=== PATIENT | male | born 1965 | race African-American/Black ===

== ENCOUNTER 2018-07-14 08:14 | Day surgery (SDC) | payer OTHER ==
[~2018-07-14] VITALS: Ht 180.3 cm; Wt 105.2 kg
[2018-07-14] VITALS (9 sets, daily range): BP systolic 126–148; BP diastolic 52–86
[2018-07-14] MEDS ORDERED: AMLODIPINE BESY10 MG ORAL (09:02)
[2018-07-14] MEDS ORDERED: OMEPRAZOLE20 M2 ORAL (09:02)
[2018-07-14] MEDS ORDERED: NAPROXEN CR500 MG PO (09:02)
[2018-07-14] MEDS ORDERED: KENALOG 0.025%15 GM APPLIC (09:02)
[2018-07-14] MEDS ORDERED: SINGULAIR10 MG ORAL (09:02)
[2018-07-14] MEDS ORDERED: ATORVASTATIN CA20 MG ORAL (09:02)
[2018-07-14] MEDS ORDERED: ATARAX25 MG ORAL (09:02)
[2018-07-14] MEDS ORDERED: GAVISCON ES TA1 EACH PO (09:02)
[2018-07-14] MEDS ORDERED: LEVOCETIRIZINE D5 MG ORAL (09:02)
[2018-07-14] MEDS ORDERED: Esmolol 100mg/10ml Inj ONE (10:00)
[2018-07-14] MEDS ORDERED: Lidocaine 1% MPF 10mg/ml 5ml ONE (10:00)
[2018-07-14] MEDS ORDERED: LR 1000ml ONE (10:00)
[2018-07-14] MEDS ORDERED: Propofol 200mg/20ml IV ONE (10:00)
--- NOTE | 2018-07-14 10:06 | Short Stay Surgery H&P ---
History of Present Illness History of Present Illness Chief Complaint abdominal pains/GERDs HPI Pedro Moser is a 52 year old male who was admitted on for GERDS Patient History Allergies: Coded Allergies: ACETAMINOPHEN (Verified Allergy, Severe, 07/14/18) HIVES BACITRACIN (Verified Allergy, Severe, 07/14/18) SWELLING HYDROCODONE (Verified Allergy, Severe, 07/14/18) HIVES NEOMYCIN (Verified Allergy, Severe, 07/14/18) SWELLING POLYMYXIN B (Verified Allergy, Severe, 07/14/18) SWELLING Uncoded Allergies: HARMON SPROUTS (Allergy, Severe, 07/14/18) ITCHY THROAT PAST MEDICAL HISTORY: (1) Hypertension (2) Hyperlipidemia (3) Cervical disc disease Medication History Scheduled Amlodipine Besylate* (Amlodipine Besylate*), 10 MG ORAL DAILY, (Reported) Atorvastatin Calcium* (Atorvastatin Calcium*), 20 MG ORAL BEDTIME, (Reported) Hydroxyzine HCl (Hydroxyzine HCl), 25 MG ORAL NEEDED, (Reported) Levocetirizine Dihydrochloride (Levocetirizine Dihydrochloride), 5 MG ORAL DAILY , (Reported) Magnesium Carbonate/Al Hydrox (Gaviscon Es Tablet Chew), 1 EACH PO TID, ( Reported) Montelukast Sodium* (Singulair*), 10 MG ORAL DAILY, (Reported) Naproxen Sodium (Naproxen Cr), 500 MG PO NEEDED, (Reported) Omeprazole (Omeprazole), 20 MG ORAL DAILY, (Reported) Triamcinolone Acet (Triamcinolone Acetonide), 15 GM APPLIC NEEDED, (Reported) Review of Systems Cardiovascular: Reports: no symptoms Respiratory: Reports: no symptoms Skeletal: Reports: trauma Gastrointestinal: Reports: gastro esophageal reflux disease Genitourinary: Reports: no symptoms Neurologic: Reports: no symptoms Endocrine: Reports: no symptoms Hematologic: Reports: no symptoms Physical Exam Vital Signs Last Vital Signs Date Time Temp Pulse Resp B/P (MAP) Pulse Ox O2 Delivery O2 Flow Rate FiO2 07/14/18 09:12 Room Air 07/14/18 08:57 98.4 75 18 126/83 98 Skin: normal HENT: normal Heart: normal Lungs: normal Abdomen: abnormal Extremities: normal Genitourinary: normal Plan Plan of Care Upper GI endoscopy and biopsy Preop Interventions None. Summary of Findings See the reports Attestation Are the patient's medical conditions optimized for surgery? Nikita Ruiz MD Jul 14, 2018 10:06
--- NOTE | 2018-07-14 10:07 | Anethesia Preoperative Eval ---
Anesthesia Pre-op PMH/ROS General Date of Evaluation: Jul 14, 2018 Time of Evaluation: 09:44 Anesthesiologist: Stella Rodriguez CRNA ASA Score: ASA 2 Mallampati Score Class I : Soft palate, uvula, fauces, pillars visible Class II: Soft palate, uvula, fauces visible Class III: Soft palate, base of uvula visible Class IV: Only hard plate visible Mallampati Classification: Class III Surgeon: Sara Diagnosis: GERD Surgical Procedure: EGD Anesthesia History: none Family History: no anesthesia problems Allergies: Coded Allergies: ACETAMINOPHEN (Verified Allergy, Severe, 07/14/18) HIVES BACITRACIN (Verified Allergy, Severe, 07/14/18) SWELLING HYDROCODONE (Verified Allergy, Severe, 07/14/18) HIVES NEOMYCIN (Verified Allergy, Severe, 07/14/18) SWELLING POLYMYXIN B (Verified Allergy, Severe, 07/14/18) SWELLING Uncoded Allergies: HARMON SPROUTS (Allergy, Severe, 07/14/18) ITCHY THROAT Medications: see eMAR Patient NPO?: Yes NPO Date: Jul 14, 2018 NPO Time: 00:00 Past Medical History Cardiovascular: Reports: HTN, other - Hypercholesterolemia; Denies: CAD, [place], valve dz, arrhythmia Pulmonary: Reports: LEVI - sleep study pending; Denies: asthma, COPD, other Gastrointestinal/Genitourinary: Denies: GERD, CRI, ESRD, other Neurologic/Psychiatric: Denies: dementia, CVA, depression/anxiety, TIA, other Endocrine: Denies: DM, hypothyroidism, steroids, other HEENT: Reports: other - RIGHT orbital fracture s/p repair; Denies: cataract (L), cataract (R), glaucoma, SENECA (L), SENECA (R) Musculoskeletal/Integumentary: Reports: OA, other - C5 fracture s/p fusion; Denies: RA, DJD, DDD, edema PMH Narrative: as above PSxH Narrative: cervical surgery, eye surgery, right knee surgery, right shoulder surgery Anesthesia Pre-op Phys. Exam Physician Exam Last Vital Signs Date Time Temp Pulse Resp B/P (MAP) Pulse Ox O2 Delivery O2 Flow Rate FiO2 07/14/18 09:12 Room Air 07/14/18 08:57 98.4 75 18 126/83 98 Constitutional: NAD Neurologic: CN 2-12 intact Cardiovascular: RRR Respiratory: CTA Gastrointestinal: S/NT/ND Airway Exam Mallampati Score: Class III MO: full Neck: limited 2/2 fustion TMD: > 3 FB ROM: full Teeth: intact Dentures: no upper, no lower Anesthesia Pre-op A/P Risk Assessment & Plan Assessment: ASA 2, ok to proceed Plan: MAC Status Change Before Surgery: No Pre-Antibiotics Given Within 1 Hr of Incision: No Stella Rodriguez CRNA Jul 14, 2018 10:07
--- NOTE | 2018-07-14 10:07 | Pre-Procedure Note/Attestation ---
Pre-Procedure Note/Attestation Complete Prior to Procedure Planned Procedure: left Procedure Narrative: Examination of the upper GI tract via endoscopy Indications for Procedure Pre-Operative Diagnosis: R/O Peptic Ulcer/Gastritis. Attestation I attest that I discussed the nature of the procedure; its benefits; risks and complications; and alternatives (and the risks and benefits of such alternatives ), prior to the procedure, with the patient (or the patient's legal counter sales representative). I attest that, if there was a reasonable possibility of needing a blood transfusion, the patient (or the patient's legal counter sales representative) was given the [facility] standardized written summary, pursuant to the Laz [place] Blood Safety Act ([place] Health and Safety Code # 1645, as amended). I attest that I re-evaluated the patient just prior to the surgery and that there has been no change in the patient's H&P, except as documented below: Nikita Ruiz MD Jul 14, 2018 10:07
[2018-07-14] MEDS ORDERED: Ketorolac 30mg Inj IV PRN (10:15)
--- NOTE | 2018-07-14 10:17 | Endoscopy Procedure Note ---
Endoscopy Procedure Note General Indication for Procedure: Abdominal pains/heartburn Procedures Performed: EGD - Small hitatal hernia otherwise normal Upper GI. endoscopy. Biopsy done per jen from gastric body. Specimen: yes Pt Tolerated Procedure Well: Yes Estimated Blood Loss: none Anesthesia Anesthesiologist: Ms. Michael MORENO Anesthesia: moderate sedation Medications Medication Given: see anesthesia record Inserted Devices Implant(s) used?: No Quality Quality of Bowel Preparation: Excellent GI Core Measures 50 yrs or older w/o bx or poly: Not Applicable 10yrs. F/U not recommended: Not Applicable If not recommended, why?: Med reason:<3 yrs.: System Reason:<3 yrs.: Nikita Ruiz MD Jul 14, 2018 10:17
--- NOTE | 2018-07-14 10:18 | Discharge Instructions ---
Discharge Instructions Discharge Instructions Call MD/Return to Hospital if: See the doctor after 2 weeks, call first For Congestive Heart Failure Reminder Report to your physician any weight gain of 5 pounds or more in one week. Nikita Ruiz MD Jul 14, 2018 10:18
--- NOTE | 2018-07-14 10:30 | Immediate Post-Op Evaluation ---
Immediate Post-Op Evalulation Immediate Post-Op Evalulation Procedure: EGD diagnostic Date of Evaluation: Jul 14, 2018 Time of Evaluation: 10:21 IV Fluids: LR 500 ml Blood Pressure Systolic: 140 Blood Pressure Diastolic: 59 Pulse Rate: 78 Respiratory Rate: 22 O2 Sat by Pulse Oximetry: 100 Temperature (Fahrenheit): 97.0 Pain Score (1-10): 0 Nausea: No Vomiting: No Complications none Patient Status: awake, patent Hydration Status: adequate Given Within 1 Hr of Incision: Stella Mccarty CRNA Jul 14, 2018 10:30
--- NOTE | 2018-07-14 12:28 | 48 Hour Post Anesthesia Eval ---
Post Anesthesia Evaluation Procedure: EGD diagnostic Date of Evaluation: Jul 14, 2018 Time of Evaluation: 12:26 Blood Pressure Systolic: 135 0: 78 Pulse Rate: 68 Respiratory Rate: 20 Temperature (Fahrenheit): 97.8 O2 Sat by Pulse Oximetry: 99 Airway: patent Nausea: No Vomiting: No Pain Intensity: 0 Cardiopulmonary Status: stable Mental Status/LOC: patient returned to baseline Follow-up Care/Observations: per GI Post-Anesthesia Complications: none Follow-up care needed: N/A Stella Rodriguez CRNA Jul 14, 2018 12:28
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
--- NOTE | 2018-07-14 17:00 | Operative Note - Dictated ---
DATE OF OPERATION: 07/14/2018 SURGEON: Nikita Ruiz M.D. PROCEDURE: Esophagogastroduodenoscopy with biopsy. PREOPERATIVE DIAGNOSES: 1. Abdominal pain. 2. Epigastric pain. 3. Heartburn. POSTOPERATIVE DIAGNOSIS: Evidence of small hiatal hernia, otherwise completely normal upper GI endoscopy. Biopsy was taken per random from gastric body. MEDICATION USED: Per Ms. Michael CRNA. INSTRUMENT: GIF Olympus upper GI video endoscope. DESCRIPTION OF PROCEDURE: The patient after arriving endoscopy unit, was told about risks and benefits of the procedure which he accepted and signed informed consent. He was then put on the left lateral decubitus position. After adequate IV sedation, the scope was gently passed through the cricopharyngeal area, was lodged in the upper esophagus and gradually advanced towards gastroesophageal junction. The entire length of the esophagus looked normal. No evidence of varices, inflammatory process, ulceration, stricture, etc. was found. Upon reaching to the gastroesophageal junction, one could see evidence of a small hiatal hernia and there was no any evidence of Lind's. At this time, the scope was advanced into the stomach. Gastric cavity was distended with insufflation of air and gradually the areas of the fundus and the body and the antrum were examined, which looked quite normal. No evidence of gastritis, peptic ulcer disease, tumors, or polyps were noted. At this point, one random biopsy from gastric body obtained and subsequently the scope was passed through the antrum, introduced into the pyloric channel. First and second portion of duodenum were also found to be completely normal. Finally, the scope was pulled back into the stomach and retroflexion maneuver, which was applied revealed no other abnormalities at the GE junction. A random biopsy from gastric body was obtained and subsequently, this procedure was terminated. The patient tolerated the procedure well and left the endoscopy room in a good condition. Nikita Ruiz M.D. DR: JOELLEN JOB#: [id number] CC:
== END 2018-07-14 11:30 | disposition home or self-care (01) ==
LOC: GAS 08:14
DX: K44.9 Diaphragmatic hernia without obstruction or gangrene (principal); R12 Heartburn; E78.5 Hyperlipidemia, unspecified; K29.50 Unspecified chronic gastritis without bleeding; I10 Essential (primary) hypertension; E66.9 Obesity, unspecified; K21.9 Gastro-esophageal reflux disease without esophagitis; Z88.6 Allergy status to analgesic agent; E78.00 Pure hypercholesterolemia, unspecified; G47.33 Obstructive sleep apnea (adult) (pediatric); Z98.1 Arthrodesis status; Z68.32 Body mass index [BMI] 32.0-32.9, adult
CPT/HCPCS: 43239; J2704; 94003; 94150